=== PATIENT | male | born 1990 | race Caucasian/White ===

== ENCOUNTER 2020-10-18 11:23 | Emergency (ER) | payer SELFPAY ==
[~2020-10-18] VITALS: Ht 177.8 cm; Wt 95.3 kg
--- NOTE | 2020-10-18 11:23 | NUR ---
PATIENT WHEELCHAIR ASSISTED TO BED 9.
[2020-10-18 11:28] VITALS: BP 148/102
[2020-10-18] MEDS ORDERED: MORPHINE SULFATE 4 MG/ML SYR IVP ONE ×2 (11:35→12:45)
[2020-10-18] MEDS ORDERED: ONDANSETRON 4 MG/2 ML VIAL IVP ONE ×2 (11:35→12:45)
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
--- NOTE | 2020-10-18 11:58 | NUR ---
[place] [employer] AT BEDSIDE
--- NOTE | 2020-10-18 12:09 | NUR ---
Labs collected bedside and walked to lab.
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
[2020-10-18 12:46] LABS: BASOPHILS # (AUTO) 0.1 K/uL (0.00-0.22); BASOPHILS % (AUTO) 0.5 % (0.0-2.0); EOSINOPHILS # (AUTO) 0.1 K/uL (0-0.4); EOSINOPHILS % (AUTO) 0.8 % (0.0-4.0); HEMATOCRIT 45.7 % (36-52); HEMOGLOBIN 14.9 g/dL (12.0-18.0); LYMPHOCYTES # (AUTO) 1.2 K/uL (2.0-11.5); LYMPHOCYTES % (AUTO) 8.4 % (20.5-51.1); MEAN CORPUSCULAR HEMOGLOBIN 27 pg (27-31); MEAN CORPUSCULAR HGB CONC 33 g/dL (33-37); MEAN CORPUSCULAR VOLUME 82.2 fL (80-94); MONOCYTES # (AUTO) 1.1 K/uL (0.8-1.0); MONOCYTES % (AUTO) 7.7 % (1.7-9.3); NEUTROPHILS # (AUTO) 11.4 K/uL (1.8-7.7); NEUTROPHILS % (AUTO) 82.6 % (42.2-75.2); PLATELET COUNT (AUTO) 193 K/uL (140-450); RED BLOOD CELL COUNT(AUTO) 5.56 MIL/uL (4.20-6.10); RED CELL DISTRIBUTION WIDTH 14.6 % (11.6-13.7); WHITE BLOOD COUNT (AUTO) 13.8 K/uL (4.8-10.8)
[2020-10-18 12:49] LABS: PROTHROMBIN TIME 9.3 secs (10.8-13.4)
[2020-10-18 12:56] LABS: ALBUMIN 4.3 g/dL (3.4-5.0); ASPARTATE AMINOTRANSFERASE 19 U/L (15-37); CARBON DIOXIDE 26.6 mmol/L (21-32); CHLORIDE 105 mmol/L (98-107); CREATININE 1.4 mg/dL (0.6-1.3); GFR ARICAN-AMERICAN 76 mL/min (>90); GLUCOSE 117 mg/dL (74-106); POTASSIUM 3.6 mmol/L (3.5-5.1); SODIUM SERUM 139 mmol/L (136-145); TOTAL BILIRUBIN 1.2 mg/dL (0.0-1.0); UREA NITROGEN, BLOOD 19 mg/dL (7-18)
[2020-10-18] MEDS ORDERED: SUD30 PO (13:14)
[2020-10-18] MEDS ORDERED: CEPH-588 PO (13:14)
[2020-10-18] MEDS ORDERED: ACET-8386 PO (13:14)
[2020-10-18] MEDS ORDERED: ONDA-24 PO (13:14)
[2020-10-18 13:40] VITALS: BP 134/88
--- NOTE | 2020-10-18 13:40 | NUR ---
Pt refused to sign discharge instructions. Witnessed by second nurse. Patient discharged with v/s stable. Written and verbal after care instructions given and explained. Patient alert, oriented and verbalized understanding of instructions. Patient w/c assisted to car. All questions addressed prior to discharge. ID band removed. Patient advised to follow up with PMD. Rx of [place], Cephalexin, Ondansetron, Sudafed given. Patient educated on indication of medication including possible reaction and side effects. Opportunity to ask questions provided and answered. IV removed, catheter intact and site benign. Applied folded 4x4 gauze and tape to stop bleeding. Pt provided with ENT referral and [facility] referral.
== END 2020-10-18 13:40 | disposition home or self-care (01) ==
LOC: MED 11:23
DX: S02.85XA Fracture of orbit, unspecified, initial encounter for closed fracture (principal); S02.2XXA Fracture of nasal bones, initial encounter for closed fracture; W18.39XA Other fall on same level, initial encounter; Y93.89 Activity, other specified; Y92.89 Other specified places as the place of occurrence of the external cause; Y99.8 Other external cause status
CPT/HCPCS: 36415; 70450; 70486; 72125; 80053; 85025; 85610; 96374; 96375; 96376; 99285; G0482; J2270; J2405